=== PATIENT | female | born 1955 | race Caucasian/White ===

== ENCOUNTER 2020-05-20 11:17 | Emergency (ER) | payer MEDICARE, MEDICAID ==
[~2020-05-20] VITALS: Ht 167.6 cm; Wt 59.0 kg
[2020-05-20] MEDS ORDERED: CAND32TA20 PO (11:28)
--- NOTE | 2020-05-20 12:02 | NUR ---
PATIENT WAS SEEN BY . DC, RX AND FOLLOW UP INSTRUCTIONS GIVEN AND EXPLAINED TO PATIENT WHO STATES SHE UNDERSTANDS ALL INSTRUCTIONS
== END 2020-05-20 12:05 | disposition home or self-care (01) ==
LOC: ER 11:17
DX: R51.9 Headache, unspecified (principal); Z88.0 Allergy status to penicillin; I10 Essential (primary) hypertension
CPT/HCPCS: A4663

== ENCOUNTER 2023-09-11 10:08 | Emergency (ER) | payer MEDICARE, OTHER ==
[~2023-09-11] VITALS: Ht 167.6 cm; Wt 54.4 kg
[~2023-09-11 10:08] MED LIST: CAND32TA20 PO
[2023-09-11 10:10] VITALS: O2SAT 98
== END 2023-09-11 10:36 | disposition home or self-care (01) ==
LOC: ER 10:08
DX: S60.021A Contusion of right index finger without damage to nail, initial encounter (principal); I10 Essential (primary) hypertension; Z79.899 Other long term (current) drug therapy; Z88.0 Allergy status to penicillin; X58.XXXA Exposure to other specified factors, initial encounter; Y93.89 Activity, other specified; Y92.89 Other specified places as the place of occurrence of the external cause; Y99.8 Other external cause status
CPT/HCPCS: A4606; A4663

== ENCOUNTER 2023-12-12 09:09 | Emergency (ER) | payer MEDICARE, MEDICAID ==
[~2023-12-12] VITALS: Ht 167.6 cm; Wt 56.7 kg
[2023-12-12 09:22] VITALS: O2SAT 99
[2023-12-12] MEDS ORDERED: DIPH59SP5 TP (09:49)
== END 2023-12-12 10:10 | disposition home or self-care (01) ==
LOC: ER 09:09
DX: L85.3 Xerosis cutis (principal); I10 Essential (primary) hypertension; Z79.899 Other long term (current) drug therapy; Z88.0 Allergy status to penicillin
CPT/HCPCS: A4606; A4663

== ENCOUNTER 2024-01-22 11:11 | Emergency (ER) | payer MEDICARE, MEDICAID ==
[~2024-01-22] VITALS: Ht 167.6 cm; Wt 56.7 kg
[~2024-01-22 11:11] MED LIST changes: +DIPH59SP5 TP
--- NOTE | 2024-01-22 11:25 | NUR ---
PT ARRIVED TO ER, WITH C/O EAR DISCOMFORT. MD AND RN ASSESS PT. PT AAOX3, BREATHING EVEN AND UNLABORED AT ROOM AIR. AMBULATORY WITH STEADY GAIT. PT STATES THAT SHE STARTED TO HEARING LESS AND HAVING PAIN IN TWO EARS (MORE IN RIGHT ONE), APPROX 1 WEEK AGO. PT DENIES CHEST PAIN, SOB, NAUSEA VOMITING, FEVER OR CHILLS AT THIS TIME.
--- NOTE | 2024-01-22 12:05 | NUR ---
EAR WASH WITH WARM WATER WAS PERFORMED BY MD AND RN. NO SIGNIFICANT WAX EXTRACTION WAS SEEN. PROCEDURE WELL TOLERATE BY PT.
[2024-01-22] MEDS ORDERED: CEFD300C3 PO (12:20)
[2024-01-22] MEDS ORDERED: PRED50TA PO (12:20)
--- NOTE | 2024-01-22 12:36 | NUR ---
PT SAFETY DISCHARGE BY MD, INSTRUCTIONS AND RX WAS GIVEN, PT VERBALIZES UNDERSTANDING. PT INSTRUCTED TO FOLLOW UP WITH PCP FOR FURTHER CONTROL, AND RETURN IF SYMPTOMS/SIGNS APPEARS OR GET WORSE. PT STABLE, AAOX4, NO C/O PAIN AT THIS TIME, AMBULATORY WITH STEADY GAIT, LEAVES ER WITH ALL BELONGINGS IN HAND.
[2024-01-22 12:44] VITALS: BP 128/68; O2SAT 98
== END 2024-01-22 12:36 | disposition home or self-care (01) ==
LOC: ER 11:11
DX: H66.91 Otitis media, unspecified, right ear (principal); H61.21 Impacted cerumen, right ear; Z79.1 Long term (current) use of non-steroidal anti-inflammatories (NSAID); Z79.899 Other long term (current) drug therapy; Z88.0 Allergy status to penicillin
CPT/HCPCS: A4606; A4663